=== PATIENT | female | born 1950 | race Caucasian/White ===

== ENCOUNTER 2017-08-04 17:23 | Emergency (ER) | payer OTHER, MEDICARE ==
[~2017-08-04] VITALS: Ht 162.6 cm; Wt 89.8 kg
[2017-08-04 17:31] VITALS: BP_SYST 134
[2017-08-04] MEDS ORDERED: ACETAMINOPHEN 500 MG TABLET PO ONE (18:15)
[2017-08-04 19:20] VITALS: BP_SYST 137
== END 2017-08-04 19:20 | disposition home or self-care (01) ==
LOC: SED 17:23
DX: S01.81XA Laceration without foreign body of other part of head, initial encounter (principal); E03.9 Hypothyroidism, unspecified; G43.909 Migraine, unspecified, not intractable, without status migrainosus; Z85.42 Personal history of malignant neoplasm of other parts of uterus; W18.09XA Striking against other object with subsequent fall, initial encounter; Y93.89 Activity, other specified; Y92.89 Other specified places as the place of occurrence of the external cause; Y99.8 Other external cause status
CPT/HCPCS: 70450-TC; 99284